=== PATIENT | female | born 1995 | race Caucasian/White ===

== ENCOUNTER 2017-09-03 21:36 | Inpatient (IN) | payer OTHER ==
[~2017-09-03] VITALS: Ht 160 cm; Wt 101.7 kg
[2017-09-03 21:37] VITALS: BP 167/75; PULSE 143; RESP 16; TEMP 100.6; O2SAT 97
[2017-09-03 21:50] VITALS: O2SAT 98
--- NOTE | 2017-09-03 21:56 | PD ---
HPI Chief Complaint: Cold / Flu Symptoms Time Seen by Provider: 21:47 Travel History International Travel<30 days: No Contact w/Intl Traveler<30days: No Traveled to known affect area: No History of Present Illness HPI 22-year-old female presents to the emergency department by private transportation for evaluation of fever and flulike symptoms 1 day. Patient is 10 weeks and reportedly under the care of MOLDING UTILITY WORKER has had ultrasound and consistent with dates. Patient is 2 para 1 Ab0. Patient has also noted some urinary frequency and a spot of blood on toilet paper when she wiped after urinating for urine specimen for the emergency department. Patient denies any vaginal bleeding vaginal discharge or fluid leak. Patient has not notified her MOLDING UTILITY WORKER of her fever. Patient states symptoms began today and took a dose of acetaminophen 1 g at 8 AM and another gram at 2:30 PM. Patient is headache and noticed that further antipyretic since 2:30 PM. Patient also reports history of hypertension but is not on any antihypertensive medications and has not been started on antihypertensive medication by her MOLDING UTILITY WORKER. Patient states that she has hypertension independent of her . Patient had been on multiple antihypertensive medications at one time but as she does not currently have a primary care provider although has insurance has not pursued medical care regarding blood pressure management. Patient also does not take vitamins as she reports it makes her feel nauseated so she has decided not to take them. Patient denies other concerns or complaints. PFSH Past Medical History Narrative Medical Hypertension, Ab0; no tobacco use; nursing notes reviewed Cardiovascular Problems: Yes (HTN) ?: Social History Alcohol Use: No Tobacco Use: No Substance Use: No Allergies-Medications (Allergen,Severity, Reaction): Coded Allergies: No Known Allergies (Verified Adverse Reaction, Unknown, 09/04/17) Reported Meds & Prescriptions Reported Meds & Active Scripts Active No Active Prescriptions or Reported Medications Review of Systems Except as stated in HPI: all other systems reviewed are Neg General / Constitutional: Positive: Fever, Chills HENT: Positive: Sore Throat, Congestion Cardiovascular: No: Chest Pain or Discomfort Respiratory: Positive: Cough, No: Shortness of Breath Gastrointestinal: No: Nausea, Vomiting, Diarrhea, Abdominal Pain Genitourinary: Positive: Frequency, No: Dysuria Musculoskeletal: No: Myalgias, Arthralgias Skin: No Rash Neurologic: No: Weakness Psychiatric: No: Anxiety Hematologic/Lymphatic: No: Lymph Node Enlargement Physical Exam Narrative GENERAL: Well-developed well-nourished obese female in no acute distress no respiratory distress triage vital signs consistent with fever temperature 103 with tachycardia and elevated blood pressure SKIN: Warm and dry. HEAD: Normocephalic. EYES: No scleral icterus. No injection or drainage. ENT: Mucous membranes moist airways patent posterior pharynx no edema erythema or exudative change tympanic membranes bilaterally without dullness loss of landmarks or perforation. NECK: Supple, trachea midline. No JVD or lymphadenopathy. CARDIOVASCULAR: Increased regular rate and rhythm without murmurs, gallops, or rubs. RESPIRATORY: Breath sounds equal bilaterally. No accessory muscle use. GASTROINTESTINAL: Abdomen soft, non-tender, nondistended. Soft nontender no guarding no rebound. MUSCULOSKELETAL: No cyanosis, or edema. BACK: Nontender without obvious deformity. No CVA tenderness. Data Data Last Documented VS Vital Signs Date Time Temp Pulse Resp B/P (MAP) Pulse Ox O2 Delivery O2 Flow Rate FiO2 09/04/17 01:06 118 18 127/71 (89) 99 Room Air 09/04/17 00:51 100.3 Orders Orders Sepsis Workup Initiated (09/03/17 ) Complete Blood Count With Diff (09/03/17 21:47) Comprehensive Metabolic Panel (09/03/17 21:47) Lactic Acid Sepsis Protocol (09/03/17 21:47) Magnesium (Mg) (09/03/17 21:47) Lipase (09/03/17 21:47) Urinalysis - C+S If Indicated (09/03/17 21:47) Influenzae A/B Antigen (09/03/17 21:47) Blood Culture (09/03/17 21:47) Blood Glucose (09/03/17 21:47) Ecg Monitoring (09/03/17 21:47) Iv Access Insert/Monitor (09/03/17 21:47) Oximetry (09/03/17 21:47) Oxygen Administration (09/03/17 21:47) Group A Rapid Strep Screen (09/03/17 21:47) Sodium Chlor 0.9% 1000 Ml Inj (Ns 1000 M (09/03/17 22:00) Acetaminophen (Tylenol) (09/03/17 22:00) Complete Rh (09/03/17 21:47) Urine Culture (09/03/17 22:00) Electrocardiogram (09/03/17 ) Strep Culture (Group A) (09/03/17 22:20) Ceftriaxone Inj (Rocephin Inj) (09/03/17 23:30) Ceftriaxone Inj (Rocephin Inj) (09/03/17 23:45) Acetaminophen (Tylenol) (09/03/17 23:45) Sodium Chlor 0.9% 1000 Ml Inj (Ns 1000 M (09/04/17 01:15) Admit Order (Ed Use Only) (09/04/17 ) Senior Supplier Quality Engineer / Telemetry [id number].[email or web address] (09/04/17 01:17) Activity Oob With Assistance (09/04/17 01:17) Notify Dr: Other (09/04/17 01:17) Labs Laboratory Tests Test 09/03/17 22:00 09/03/17 22:20 09/03/17 22:25 Urine Collection Type CLEAN CATCH Urine Color YELLOW Urine Turbidity SL CLOUDY Urine pH 5.5 Urine Specific [place] 1.025 Urine Protein 30 mg/dL Urine Glucose (UA) NEG mg/dL Urine Ketones 80 OR GREATER mg/dL Urine Occult Blood LARGE Urine Nitrite NEG Urine Bilirubin NEG Urine Urobilinogen 0.2 MG/DL Urine Leukocyte Esterase SMALL Urine RBC 50-99 /hpf Urine WBC 25-49 /hpf Urine WBC Clumps OCC Urine Squamous Epithelial Cells > 8 /hpf Urine Bacteria MOD /hpf Urine Mucus FEW /lpf Microscopic Urinalysis Comment CULTURE INDICATED White Blood Count 12.1 TH/MM3 Red Blood Count 4.19 MIL/MM3 Hemoglobin 12.5 GM/DL Hematocrit 36.3 % Mean Corpuscular Volume 86.6 FL Mean Corpuscular Hemoglobin 29.8 PG Mean Corpuscular Hemoglobin Concent 34.4 % Red Cell Distribution Width 13.0 % Platelet Count 196 TH/MM3 Mean Platelet Volume 9.7 FL Neutrophils (%) (Auto) 89.7 % Lymphocytes (%) (Auto) 5.1 % Monocytes (%) (Auto) 4.9 % Eosinophils (%) (Auto) 0.1 % Basophils (%) (Auto) 0.2 % Neutrophils # (Auto) 10.9 TH/MM3 Lymphocytes # (Auto) 0.6 TH/MM3 Monocytes # (Auto) 0.6 TH/MM3 Eosinophils # (Auto) 0.0 TH/MM3 Basophils # (Auto) 0.0 TH/MM3 CBC Comment AUTO DIFF Differential Comment AUTO DIFF CONFIRMED Blood Urea Nitrogen 6 MG/DL Creatinine 0.66 MG/DL Random Glucose 112 MG/DL Total Protein 7.9 GM/DL Albumin 3.3 GM/DL Calcium Level 9.0 MG/DL Magnesium Level 1.8 MG/DL Alkaline Phosphatase 57 U/L Aspartate Amino Transf (AST/SGOT) 11 U/L Alanine Aminotransferase (ALT/SGPT) 11 U/L Total Bilirubin 0.6 MG/DL Sodium Level 134 MEQ/L Potassium Level 3.5 MEQ/L Chloride Level 102 MEQ/L Carbon Dioxide Level 20.6 MEQ/L Anion Gap 11 MEQ/L Estimat Glomerular Filtration Rate 113 ML/MIN Lipase 70 U/L Lactic Acid Level 0.9 mmol/L MDM Medical Decision Making Medical Screen Exam Complete: Yes Emergency Medical Condition: Yes Medical Record Reviewed: Yes Interpretation(s) CBC & BMP Diagram 09/03/17 22:20 Total Protein 7.9, Albumin 3.3 L, Calcium Level 9.0, Magnesium Level 1.8, Alkaline Phosphatase 57, Aspartate Amino Transf (AST/SGOT) 11 L, Alanine Aminotransferase (ALT/SGPT) 11, Total Bilirubin 0.6 UA: White blood cells clumped white blood cells bacteria; culture indicated Differential Diagnosis Fever, influenza, pharyngitis, tonsillitis, pneumonia, UTI, threatened spontaneous AB, tachycardia, hypertension Narrative Course Patient placed on classroom monitor IV access obtained specimens collected and sent for resulting; patient given acetaminophen 650 mg by mouth 1 dose After informed verbal consent patient placed supine and using curvilinear probe in the longitudinal and transverse views IUP confirmed heart rate approximately [address] Prado for admission Patient symptomatically and clinically improved after IV fluids antipyretics and antibiotics Patient agrees with admission Sepsis Criteria SIRS Criteria (2 or more): Temp > 100.9 or < 96.8, Heart rate over 90 Sepsis Criteria (SIRS+source): Infect source susp/known Physician Communication Physician Communication discussed with Dr Prado for admission Diagnosis Primary Impression: Sepsis Additional Impressions: Pyelonephritis Admitting Information Admitting Physician Requests: Admit Scripts No Active Prescriptions or Reported Meds Agatha Orantes MD Sep 03, 2017 21:56
[2017-09-03] MEDS ORDERED: SODIUM CHLOR 0.9% 1000 ML INJ 1,000 ML IV ONE (22:00)
[2017-09-03] MEDS ORDERED: ACETAMINOPHEN 325 MG TAB PO ONE ×2 (22:00→23:45)
[2017-09-03 22:05] VITALS: BP 171/75; PULSE 150; RESP 20; TEMP 103; O2SAT 99
[2017-09-03 22:25] LABS: BLOOD, URINE LARGE (NEG); GLUCOSE,URINE NEG (NEG); KETONE, URINE 80 OR GREATER mg/dL (NEG); NITRITE,URINE NEG (NEG); PH, URINE 5.5 (5.0-8.5); URINE COLOR YELLOW (YELLW/STRAW); URINE LEUKOCYTE ESTERASE SMALL (NEG)
[2017-09-03 22:33] LABS: BILIRUBIN, URINE NEG (NEG)
[2017-09-03 22:35] LABS: MUCUS URINE FEW /lpf (OCC); SQUAMOUS EPITHELIAL CELL URINE > 8 /hpf (0-5); WHITE BLOOD CELL CLUMPS OCC
[2017-09-03 22:36] LABS: BACTERIA, URINE MOD /hpf
[2017-09-03 23:00] VITALS: BP 134/63; PULSE 130; RESP 20; TEMP 101.7; O2SAT 97
[2017-09-03 23:05] VITALS: BP 134/63; PULSE 130; RESP 18; O2SAT 98
[2017-09-03] MEDS ORDERED: cefTRIAXone INJ 1,000 MG in SODIUM CHLORIDE 0.9% INJ 100 ML IV ONE (23:30)
[2017-09-03 23:38] LABS: AUTOMATED NEUTROPHIL # 10.9 TH/MM3 (1.8-7.7); BASOPHIL % 0.2 % (0.0-2.0); EOSINOPHIL % 0.1 % (0.0-4.0); HEMATOCRIT 36.3 % (35.0-46.0); HEMOGLOBIN 12.5 GM/DL (11.6-15.3); LYMPH % 5.1 % (9.0-44.0); LYMPHOCYTE # 0.6 TH/MM3 (1.0-4.8); MEAN CELL VOLUME 86.6 FL (80.0-100.0); MEAN CORPUSCULAR HEMOGLOBIN 29.8 PG (27.0-34.0); MEAN CORPUSCULAR HGB CONC 34.4 % (32.0-36.0); MEAN PLATELET VOLUME 9.7 FL (7.0-11.0); MONO % 4.9 % (0.0-8.0); MONOCYTE # 0.6 TH/MM3 (0-0.9); NEUT % 89.7 % (16.0-70.0); PLATELET COUNT 196 TH/MM3 (150-450); RED BLOOD COUNT 4.19 MIL/MM3 (4.00-5.30); WHITE BLOOD COUNT 12.1 TH/MM3 (4.0-11.0)
[2017-09-03] MEDS ORDERED: cefTRIAXone INJ 2,000 MG in SODIUM CHLORIDE 0.9% INJ 100 ML IV ONE (23:45)
[2017-09-03 23:47] LABS: CHLORIDE 102 MEQ/L (98-107); SODIUM (NA) 134 MEQ/L (136-145)
[2017-09-03 23:51] LABS: ALBUMIN 3.3 GM/DL (3.4-5.0); BICARBONATE 20.6 MEQ/L (21.0-32.0); BLOOD UREA NITROGEN 6 MG/DL (7-18); GLUCOSE,RANDOM 112 MG/DL (74-106); MAGNESIUM 1.8 MG/DL (1.5-2.5)
[2017-09-03 23:53] LABS: ALT (GPT) 11 U/L (10-53)
[2017-09-03 23:54] LABS: AST (GOT) 11 U/L (15-37); CREATININE 0.66 MG/DL (0.50-1.00); GLOMERULAR FILTRATION RATE 113 ML/MIN (>89)
[2017-09-03 23:55] LABS: TOTAL BILIRUBIN ADULT 0.6 MG/DL (0.2-1.0); TOTAL PROTEIN 7.9 GM/DL (6.4-8.2)
[2017-09-03 23:56] LABS: ALKALINE PHOSPHATASE 57 U/L (45-117)
[2017-09-04] VITALS (11 sets, daily range): BP systolic 111–137; BP diastolic 54–75; PULSE 84–118; RESP 16–20; TEMP 97.1–100.3; O2SAT 95–100
[2017-09-04] MEDS ORDERED: SODIUM CHLOR 0.9% 1000 ML INJ 1,000 ML IV ONE (01:15)
[2017-09-04] MEDS ORDERED: LACTULOSE SYRUP 20 GM/30 ML CUP PO PRN (01:30)
[2017-09-04] MEDS ORDERED: MAGNESIUM HYDROXIDE SUSP 30 ML CUP PO PRN (01:30)
[2017-09-04] MEDS ORDERED: SENNOSIDES 8.6 MG TAB PO PRN (01:30)
[2017-09-04] MEDS ORDERED: ONDANSETRON HCL 4 MG/2 ML VIAL IVP PRN (01:30)
[2017-09-04] MEDS ORDERED: BISACODYL 10 MG SUPP RECTAL PRN (01:30)
[2017-09-04] MEDS ORDERED: SODIUM CHLORIDE 0.9% FLUSH 10 ML FLUSH IV FLUSH PRN (01:30)
[2017-09-04] MEDS: SODIUM CHLOR 0.9% 1000 ML INJ 1,000 ML IV SCH ×3 (03:36→21:05)
[2017-09-04] MEDS: ACETAMINOPHEN 325 MG TAB PO PRN ×2 (06:24→12:40)
--- NOTE | 2017-09-04 07:26 | HHI.HP ---
HPI Service [facility] ([place], [place])ists Primary Care Physician No Primary Care Physician Admission Diagnosis Sepsis; UTI Diagnoses: Travel History International Travel<30 Days: No Contact w/Intl Traveler <30 Da: No Traveled to Known Affected Are: No Sepsis Criteria SIRS Criteria (2 or more): Temp > 100.9 or < 96.8, Heart rate over 90, WBC > 18689, < 4000 or > 10% bands Sepsis Criteria (SIRS+source): Infect source susp/known Criteria Outcome: Meets sepsis criteria History of Present Illness 22 year old female BENNETT [birth year] at approximately 10 weeks gestation admitted for sepsis secondary to UTI. She presented to the ER with symptoms of fever, cough, and sore throat for the past two days. She also endorsed feeling sluggish and fatigued; states she had confirmed influenza in late May and symptoms were similar though not as severe. She denies chest pain, shortness of breath, or myalgias. She noticed yesterday that she was having urinary urgency but states when she went to urinate she had just a small amount. She denies hematuria, dysuria, urinary frequency, or flank pain. She follows with [facility]PERATOR and has already been seen during this . She is being monitored for HTN which she had during her prior but has not been started on any medication so far this . She states she cannot tolerate PNV because they make her very sick. Review of Systems Except as stated in HPI: all other systems reviewed are Neg Past Family Social History Past Medical History Gestational HTN Past Surgical History None Reported Medications None Allergies: Coded Allergies: No Known Allergies (Verified Adverse Reaction, Unknown, 09/04/17) Active Ordered Medications Acetaminophen (Tylenol) 325 mg ONCE ONCE PO Last administered on 09/03/17at 23: 48; Admin Dose 325 MG; Start 09/03/17 at 23:45; Stop 09/03/17 at 23:46; Status DC Acetaminophen (Tylenol) 650 mg ONCE ONCE PO Last administered on 09/03/17at 22: 16; Admin Dose 650 MG; Start 09/03/17 at 22:00; Stop 09/03/17 at 22:01; Status DC Acetaminophen (Tylenol) 650 mg Q6H PRN PO Last administered on 09/04/17at 06:24 ; Admin Dose 650 MG; Start 09/04/17 at 01:30 Bisacodyl (Dulcolax Supp) 10 mg DAILY PRN RECTAL; Start 09/04/17 at 01:30 Ceftriaxone Sodium 1000 mg/ Sodium Chloride 100 ml @ 200 mls/hr ONCE ONCE IV; Start 09/03/17 at 23:30; Stop 09/03/17 at 23:32; Status DC Ceftriaxone Sodium 1000 mg/ Sodium Chloride 100 ml @ 200 mls/hr Q24H IV; Start 09/04/17 at 23:00 Ceftriaxone Sodium 2000 mg/ Sodium Chloride 100 ml @ 200 mls/hr ONCE ONCE IV Last administered on 09/03/17at 23:47; Admin Dose 200 MLS/HR; Start 09/03/17 at 23:45; Stop 09/04/17 at 00:14; Status DC Lactulose (Lactulose Liq) 30 ml DAILY PRN PO; Start 09/04/17 at 01:30 Magnesium Hydroxide (Milk Of Magnesia Liq) 30 ml Q12H PRN PO; Start 09/04/17 at 01:30 Ondansetron HCl (Zofran Inj) 4 mg Q6H PRN IVP; Start 09/04/17 at 01:30 Senna/Docusate Sodium (Maren-Colace) 1 tab BID PO; Start 09/04/17 at 09:00 Sennosides (Senokot) 17.2 mg Q12H PRN PO; Start 09/04/17 at 01:30 Sodium Chloride 1,000 ml @ 100 mls/hr Q10H IV Last administered on 09/04/17at 03 :36; Admin Dose 100 MLS/HR; Start 09/04/17 at 01:20 Sodium Chloride 1,000 ml @ 999 mls/hr BOLUS ONCE IV Last administered on at 23:46; Admin Dose 999 MLS/HR; Start 09/03/17 at 22:00; Stop 09/03/17 at 23: 00; Status DC Sodium Chloride 1,000 ml @ 999 mls/hr BOLUS ONCE IV Last administered on at 01:45; Admin Dose 999 MLS/HR; Start 09/04/17 at 01:15; Stop 09/04/17 at 03: 00; Status DC Sodium Chloride (NS Flush) 2 ml BID IV FLUSH; Start 09/04/17 at 09:00 Sodium Chloride (NS Flush) 2 ml UNSCH PRN IV FLUSH; Start 09/04/17 at 01:30 Family History Mother with DM, father's medical history unknown Social History EtOH: denies Tobacco: denies Illicit drugs: denies Physical Exam Vital Signs Vital Signs Date Time Temp Pulse Resp B/P (MAP) Pulse Ox O2 Delivery O2 Flow Rate FiO2 09/04/17 03:49 104 09/04/17 03:30 98.4 101 20 129/65 (86) 99 09/04/17 03:02 108 18 135/67 (89) 98 09/04/17 01:06 118 18 127/71 (89) 99 Room Air 09/04/17 00:52 118 18 137/75 (95) 98 Room Air 09/04/17 00:51 100.3 09/04/17 00:11 114 18 134/61 (85) 98 Room Air 09/03/17 23:05 130 18 134/63 (86) 98 Room Air 09/03/17 23:00 101.7 130 20 134/63 (86) 97 Room Air 09/03/17 22:05 103.0 150 20 171/75 (107) 99 Room Air 09/03/17 22:02 128 18 96 09/03/17 21:50 98 Room Air 09/03/17 21:50 98 Room Air 09/03/17 21:37 100.6 143 16 167/75 (105) 97 Physical Exam GENERAL: Well-nourished, well-developed female laying comfortably in bed in no apparent distress. SKIN: No rashes, ecchymoses or lesions. Warm and clammy. HEENT: Atraumatic. Normocephalic. No temporal or scalp tenderness. Face is flushed. Pupils equal round and reactive. Extraocular motions intact. No scleral icterus. No injection or drainage. Nose without bleeding, purulent drainage or septal hematoma. Throat without erythema, tonsillar hypertrophy or exudate. Uvula midline. Airway patent. NECK: Trachea midline. No JVD or lymphadenopathy. Supple, nontender, no meningeal signs. CARDIOVASCULAR: Tachycardic with a regular rhythm. No murmurs, rubs, or gallops. RESPIRATORY: Clear to auscultation. Breath sounds equal bilaterally. No wheezes , rales, or rhonchi. GASTROINTESTINAL: Abdomen soft, nontender, nondistended. No hepatosplenomegaly or palpable masses. No guarding. MUSCULOSKELETAL: No CVA tenderness. Extremities without clubbing, cyanosis, or edema. No joint tenderness, effusion, or edema noted. No calf tenderness. Negative Homans sign bilaterally. NEUROLOGICAL: Awake and alert. Motor and sensory grossly within normal limits. Normal speech. Laboratory Laboratory Tests Test 09/03/17 22:00 09/03/17 22:20 09/03/17 22:25 Urine Collection Type CLEAN CATCH Urine Color YELLOW Urine Turbidity SL CLOUDY Urine pH 5.5 Urine Specific [place] 1.025 Urine Protein 30 Urine Glucose (UA) NEG Urine Ketones 80 OR GREATER Urine Occult Blood LARGE Urine Nitrite NEG Urine Bilirubin NEG Urine Urobilinogen 0.2 Urine Leukocyte Esterase SMALL Urine RBC 50-99 Urine WBC 25-49 Urine WBC Clumps OCC Urine Squamous Epithelial Cells > 8 Urine Bacteria MOD Urine Mucus FEW Microscopic Urinalysis Comment CULTURE INDICATED White Blood Count 12.1 Red Blood Count 4.19 Hemoglobin 12.5 Hematocrit 36.3 Mean Corpuscular Volume 86.6 Mean Corpuscular Hemoglobin 29.8 Mean Corpuscular Hemoglobin Concent 34.4 Red Cell Distribution Width 13.0 Platelet Count 196 Mean Platelet Volume 9.7 Neutrophils (%) (Auto) 89.7 Lymphocytes (%) (Auto) 5.1 Monocytes (%) (Auto) 4.9 Eosinophils (%) (Auto) 0.1 Basophils (%) (Auto) 0.2 Neutrophils # (Auto) 10.9 Lymphocytes # (Auto) 0.6 Monocytes # (Auto) 0.6 Eosinophils # (Auto) 0.0 Basophils # (Auto) 0.0 CBC Comment AUTO DIFF Differential Comment AUTO DIFF CONFIRMED Blood Urea Nitrogen 6 Creatinine 0.66 Random Glucose 112 Total Protein 7.9 Albumin 3.3 Calcium Level 9.0 Magnesium Level 1.8 Alkaline Phosphatase 57 Aspartate Amino Transf (AST/SGOT) 11 Alanine Aminotransferase (ALT/SGPT) 11 Total Bilirubin 0.6 Sodium Level 134 Potassium Level 3.5 Chloride Level 102 Carbon Dioxide Level 20.6 Anion Gap 11 Estimat Glomerular Filtration Rate 113 Lipase 70 Lactic Acid Level 0.9 Date/Time Source Procedure Growth Status 09/03/17 22:25 Blood Peripheral Aerobic Blood Culture Pending Received 09/03/17 22:25 Blood Peripheral Anaerobic Blood Culture Pending Received 09/03/17 22:20 Throat Group A Streptococcus Screen Pending Received 09/03/17 22:00 Urine Clean Catch Urine Culture Pending Worksheet Result Diagram: 09/03/170 09/03/170 Septic Shock Reassessment Septic shock perfusion: reassessment completed Caprini VTE Risk Assessment Caprini VTE Risk Assessment: Mod/High Risk (score >= 2) Caprini Risk Assessment Model Point Value = 1 Point Value = 2 Point Value = 3 Point Value = 5 Age 41-60 Minor surgery BMI > 25 kg/m2 Swollen legs Varicose veins or History of unexplained or recurrent spontaneous Oral contraceptives or hormone replacement Sepsis (< 1 month) Serious lung disease, including pneumonia (< 1 month) Abnormal pulmonary function Acute myocardial infarction Congestive heart failure (< 1 month) History of inflammatory bowel disease Medical patient at bed rest Age 61-74 Arthroscopic surgery Major open surgery (> 45 min) Laparoscopic surgery (> 45 min) Malignancy Confined to bed (> 72 hours) Immobilizing plaster cast Central venous access Age >= 75 History of VTE Family history of VTE Factor V Leiden Prothrombin [id number] Lupus anticoagulant Anticardiolipin antibodies Elevated serum homocysteine Heparin-induced thrombocytopenia Other congenital or acquired thrombophilia Stroke (< 1 month) Elective arthroplasty Hip, pelvis, or leg fracture Acute spinal cord injury (< 1 month) Prophylaxis Regimen Total Risk Factor Score Risk Level Prophylaxis Regimen 0-1 Low Early ambulation 2 Moderate Order ONE of the following: *Sequential Compression Device (SCD) *Heparin 5000 units SQ BID 3-4 Higher Order ONE of the following medications: *Heparin 5000 units SQ TID *Enoxaparin/Lovenox 40 mg SQ daily (WT < 150 kg, CrCl > 30 mL/min) *Enoxaparin/Lovenox 30 mg SQ daily (WT < 150 kg, CrCl > 10-29 mL/min) *Enoxaparin/Lovenox 30 mg SQ BID (WT < 150 kg, CrCl > 30 mL/min) AND/OR *Sequential Compression Device (SCD) 5 or more Highest Order ONE of the following medications: *Heparin 5000 units SQ TID (Preferred with Epidurals) *Enoxaparin/Lovenox 40 mg SQ daily (WT < 150 kg, CrCl > 30 mL/min) *Enoxaparin/Lovenox 30 mg SQ daily (WT < 150 kg, CrCl > 10-29 mL/min) *Enoxaparin/Lovenox 30 mg SQ BID (WT < 150 kg, CrCl > 30 mL/min) AND *Sequential Compression Device (SCD) Assessment and Plan Problem List: (1) Pyelonephritis ICD Code: N12 - Tubulo-interstitial nephritis, not specified as acute or chronic Status: Acute (2) ICD Code: Z34.90 - Encounter for supervision of normal , unspecified, unspecified trimester (3) Hypertension ICD Code: I10 - Essential (primary) hypertension Assessment and Plan 22 YOWF at 10 weeks gestation admitted for sepsis secondary to pyelonephritis. 1. Sepsis/pyelonephritis - White count >12, tachycardic, febrile - U/A dirty with blood and leukocyte esterase with systemic symptoms and leukocytosis - Lactic acid WNL - F/u urine cultures - Blood cultures pending - Continue Rocephin - IV hydration with NS at 100 ml/hr 2. URI - Negative flu and rapid strep - Supportive care 3. HTN - Improved since elevated on admission - Monitor - F/U with OBGYN as outpatient 4. - Bedside U/S in ED confirmed IUP with FHR 168 - Cannot tolerate PNV - Avoid teratogenic medications 5. DVT prophylaxis - SCDs Code Status FULL Discussed Condition With Patient Physician Certification 2 Midnight Certification Type: Admission for Inpatient Services Order for Inpatient Services The services are ordered in accordance with Medicare regulations or non- Medicare payer requirements, as applicable. In the case of services not specified as inpatient-only, they are appropriately provided as inpatient services in accordance with the 2-midnight benchmark. Estimated LOS (days): 2 2 days is the estimated time the patient will need to remain in the hospital, assuming treatment plan goals are met and no additional complications. Post-Hospital Plan: Beata Chen MD Sep 04, 2017 07:26
[2017-09-04] MEDS: SODIUM CHLORIDE 0.9% FLUSH 10 ML FLUSH IV FLUSH SCH ×2 (08:45→21:00)
[2017-09-04] MEDS: DOCUSATE SODIUM 50 MG/SENNA 8.6 MG TAB PO SCH ×4 (08:45→21:06)
--- NOTE | 2017-09-04 10:09 | EKG ---
Date Performed: 09/03/2017 Time Performed: 22:51:29 PTAGE: 22 years EKG: PROBABLE Sinus tachycardia Nonspecific ST and T wave abnormalities NO PREVIOUS TRACING DOCTOR: Antione Hammonds Interpretating Date/Time 09/04/2017 10:09:39
[2017-09-04] MEDS: MENTHOL LOZENGE BUCCAL PRN ×2 (12:41→22:10)
[2017-09-04] MEDS ORDERED: cefTRIAXone INJ 1,000 MG in SODIUM CHLORIDE 0.9% INJ 100 ML IV SCH (23:00)
[2017-09-05] VITALS: BP 135/78; PULSE 92; RESP 16; TEMP 99; O2SAT 98
[2017-09-05 04:00] VITALS: BP 135/87; PULSE 92; RESP 16; TEMP 98.1; O2SAT 98
[2017-09-05 06:53] LABS: AUTOMATED NEUTROPHIL # 5.5 TH/MM3 (1.8-7.7); BASOPHIL % 0.3 % (0.0-2.0); EOSINOPHIL # 0.1 TH/MM3 (0-0.4); EOSINOPHIL % 1.1 % (0.0-4.0); HEMATOCRIT 31.5 % (35.0-46.0); HEMOGLOBIN 10.3 GM/DL (11.6-15.3); LYMPH % 20.1 % (9.0-44.0); LYMPHOCYTE # 1.5 TH/MM3 (1.0-4.8); MEAN CELL VOLUME 86.1 FL (80.0-100.0); MEAN CORPUSCULAR HEMOGLOBIN 28.2 PG (27.0-34.0); MEAN CORPUSCULAR HGB CONC 32.7 % (32.0-36.0); MONO % 5.9 % (0.0-8.0); MONOCYTE # 0.4 TH/MM3 (0-0.9); NEUT % 72.6 % (16.0-70.0); PLATELET COUNT 174 TH/MM3 (150-450); RED BLOOD COUNT 3.66 MIL/MM3 (4.00-5.30); RED CELL DISTRIBUTION WIDTH 13.3 % (11.6-17.2); WHITE BLOOD COUNT 7.5 TH/MM3 (4.0-11.0)
[2017-09-05 07:03] LABS: CHLORIDE 109 MEQ/L (98-107); SODIUM (NA) 141 MEQ/L (136-145)
[2017-09-05 07:13] LABS: ALBUMIN 2.6 GM/DL (3.4-5.0); ALT (GPT) 8 U/L (10-53); AST (GOT) 5 U/L (15-37); BICARBONATE 23.2 MEQ/L (21.0-32.0); BLOOD UREA NITROGEN 4 MG/DL (7-18); CALCIUM 7.8 MG/DL (8.5-10.1); CREATININE 0.41 MG/DL (0.50-1.00); GLOMERULAR FILTRATION RATE 196 ML/MIN (>89); GLUCOSE,RANDOM 86 MG/DL (74-106)
[2017-09-05] MEDS: SODIUM CHLOR 0.9% 1000 ML INJ 1,000 ML IV SCH (07:20)
[2017-09-05 07:22] LABS: ALKALINE PHOSPHATASE 43 U/L (45-117); TOTAL BILIRUBIN ADULT 0.2 MG/DL (0.2-1.0); TOTAL PROTEIN 6.2 GM/DL (6.4-8.2)
[2017-09-05 08:00] VITALS: BP 133/70; PULSE 94; RESP 14; TEMP 98.1; O2SAT 96
[2017-09-05] MEDS: SODIUM CHLORIDE 0.9% FLUSH 10 ML FLUSH IV FLUSH SCH (09:00)
[2017-09-05] MEDS: DOCUSATE SODIUM 50 MG/SENNA 8.6 MG TAB PO SCH (09:00)
[2017-09-05 12:00] VITALS: BP 130/60; PULSE 90; RESP 16; TEMP 97.7; O2SAT 98
--- NOTE | 2017-09-05 15:33 | HHI.PR ---
Subjective Remarks Follow-up sepsis secondary to UTI. Patient seen and examined, lying in bed feeling much improved. States she has more energy. Urine culture growing E. coli. Eating well, denies any nausea or vomiting. Hypertension improved. Objective Vitals Vital Signs Date Time Temp Pulse Resp B/P (MAP) Pulse Ox O2 Delivery O2 Flow Rate FiO2 09/05/17 12:00 97.7 90 16 130/60 (83) 98 09/05/17 08:00 98.1 94 14 133/70 (91) 96 09/05/17 04:00 98.1 92 16 135/87 (103) 98 09/05/17 00:00 99.0 92 16 135/78 (97) 98 09/04/17 20:00 97.1 84 18 119/67 (84) 100 09/04/17 20:00 93 09/04/17 16:00 97.6 95 18 111/71 (84) 95 I/O 09/04/17 09/04/17 09/04/17 09/05/17 09/05/17 09/05/17 06:59 14:59 22:59 06:59 14:59 22:59 Intake Total 2340 ml 1700 ml 600 ml 340 ml Balance 2340 ml 1700 ml 600 ml 340 ml Intake Oral 240 ml 600 ml 600 ml 340 ml IV Total 2100 ml 1100 ml # Voids 1 3 3 Result Diagram: 09/05/17 0620 09/05/17 0620 Objective Remarks GENERAL: Well-nourished, well-developed female laying comfortably in bed in no apparent distress. SKIN: No rashes, ecchymoses or lesions. Warm and clammy. HEENT: Atraumatic. Normocephalic. No temporal or scalp tenderness. Face is flushed. Pupils equal round and reactive. Extraocular motions intact. No scleral icterus. No injection or drainage. Nose without bleeding, purulent drainage or septal hematoma. Throat without erythema, tonsillar hypertrophy or exudate. Uvula midline. Airway patent. NECK: Trachea midline. No JVD or lymphadenopathy. Supple, nontender, no meningeal signs. CARDIOVASCULAR: Tachycardic with a regular rhythm. No murmurs, rubs, or gallops. RESPIRATORY: Clear to auscultation. Breath sounds equal bilaterally. No wheezes , rales, or rhonchi. GASTROINTESTINAL: Abdomen soft, nontender, nondistended. No hepatosplenomegaly or palpable masses. No guarding. MUSCULOSKELETAL: No CVA tenderness. Extremities without clubbing, cyanosis, or edema. No joint tenderness, effusion, or edema noted. No calf tenderness. Negative Homans sign bilaterally. NEUROLOGICAL: Awake and alert. Motor and sensory grossly within normal limits. Normal speech. A/P Problem List: (1) Pyelonephritis ICD Code: N12 - Tubulo-interstitial nephritis, not specified as acute or chronic Status: Acute (2) ICD Code: Z34.90 - Encounter for supervision of normal , unspecified, unspecified trimester (3) Hypertension ICD Code: I10 - Essential (primary) hypertension Assessment and Plan 22 YOWF at 10 weeks gestation admitted for sepsis secondary to pyelonephritis. 1. Sepsis/pyelonephritis - White count >12, tachycardic, febrile on presentation. Has now resolved. -Urine culture showing E. coli. - Lactic acid WNL - Blood cultures no growth to date. -Given IV Rocephin. Started on cefuroxime upon discharge. Was given IV fluids. Tolerating p.o. intake. 2. URI - Negative flu and rapid strep - Supportive care 3. HTN - Improved since elevated on admission - Monitor - F/U with OBGYN as outpatient 4. - Bedside U/S in ED confirmed IUP with FHR 168 - Cannot tolerate PNV - Avoid teratogenic medications 5. DVT prophylaxis - SCDs Discharge Planning Discharge today. Continue antibiotics to completion. Follow-up PCP and [employer]ICE [employer] Savi Meyer Sep 05, 2017 15:33
[2017-09-05 16:00] VITALS: BP 129/65; PULSE 84; RESP 14; TEMP 98.2; O2SAT 97
--- NOTE | 2017-09-05 16:40 | HHI.DCPOC ---
Discharge Care Plan Diagnosis: (1) Hypertension (2) Sepsis (3) (4) Pyelonephritis Goals to Promote Your Health * To prevent worsening of your condition and complications * To maintain your health at the optimal level Directions to Meet Your Goals Take your medications as prescribed Follow your dietary instruction Follow activity as directed Keep your appointments as scheduled Take your immunizations and boosters as scheduled If your symptoms worsen call your PCP, if no PCP go to Urgent Care Center or Emergency Room Smoking is Dangerous to Your Health. Avoid second hand smoke Call the 24-hour hour crisis hotline for domestic abuse at Savi Meyer Sep 05, 2017 16:40
[2017-09-05] MEDS ORDERED: CEFU1TAB20 PO (16:43)
== END 2017-09-05 17:32 | disposition home or self-care (01) | DRG 872 ==
LOC: PHED 21:36 → PHEDA 09-04 01:19 → PH3A 09-04 03:11
PROVIDERS: ADMIT Hospitalist; ATTEND Hospitalist
DX: A41.9 Sepsis, unspecified organism (principal); O16.1 Unspecified maternal hypertension, first trimester; O23.01 Infections of kidney in pregnancy, first trimester; O99.511 Diseases of the respiratory system complicating pregnancy, first trimester; B96.20 Unspecified Escherichia coli [E. coli] as the cause of diseases classified elsewhere; E66.9 Obesity, unspecified; Z3A.10 10 weeks gestation of pregnancy; Z68.39 Body mass index [BMI] 39.0-39.9, adult
CPT/HCPCS: 80053; 81001; 83605; 83690; 83735; 85025; 86901; 87040; 87077; 87081; 87086; 87186; 87804; 87880; 93005; 96365; J0696; J7030

== ENCOUNTER → 2017-12-20 | Outpatient (CLI) | payer OTHER ==
[~2017-12-20] MED LIST: CEFU1TAB20 PO
== END ==
LOC: HPND 09:21
PROVIDERS: ATTEND Obstetrics & Gynecology
DX: Z36.2 Encounter for other antenatal screening follow-up (principal)
CPT/HCPCS: 76811